=== PATIENT | female | born 1960 | race Two or more races ===

== ENCOUNTER 2024-04-16 15:24 | Outpatient (CLI) | payer OTHER | END 2024-04-16 15:35 | disposition home or self-care (01) | LOC: MAMO-SONO 15:24 | PROVIDERS: ATTEND Internal Medicine | DX: Z12.31 Encounter for screening mammogram for malignant neoplasm of breast (principal); I11.9 Hypertensive heart disease without heart failure ==

== ENCOUNTER 2025-07-23 07:20 | Outpatient (CLI) | payer OTHER | END 2025-07-23 07:21 | disposition home or self-care (01) | LOC: NUCLEAR 07:20 | PROVIDERS: ATTEND Internal Medicine | DX: R06.09 Other forms of dyspnea (principal) | CPT/HCPCS: 78452; 93017; A9500; J0153 ==

== ENCOUNTER 2025-07-24 10:36 | Outpatient (CLI) | payer OTHER | END 2025-07-24 10:39 | disposition home or self-care (01) | LOC: MAMO-SONO 10:36 | DX: Z12.31 Encounter for screening mammogram for malignant neoplasm of breast (principal) ==